=== PATIENT | female | born 1975 | race Caucasian/White ===

== ENCOUNTER 2017-05-22 13:08 | Emergency (ER) | payer OTHER, MEDICAID, SELFPAY ==
[2017-05-22 13:09] VITALS: BP 134/88; PULSE 79; RESP 16; TEMP 36.6; O2SAT 98; BMI 32.5
--- NOTE | 2017-05-22 13:38 | ED.VISSUMM ---
- ER Visit Summary Date of Service: 05/22/17 Chief Complaint: [Pain and swelling to right hip] History of Present Illness: The patient is a 42 F [presents to the emergency department with pain and swelling to her right hip that she noticed yesterday. Patient today noticed increased discomfort with some bruising and she comes to the ER for evaluation. Patient denies any known trauma to the area. He denies any chest pain or shortness of breath. She denies recent travel or surgery. Patient is not on any blood thinners. She denies any blood in her stool or black tarry stools. Patient has not been ill recently.] Physical Examination: [HEENT-PERRLA, EOMI. Cranial nerves II through XII grossly intact. TMs clear. Mucous membranes moist. No adenopathy. Cardiovascular-regular rate and rhythm without murmur or ectopy Lungs-clear to auscultation, chest wall stable without crepitus or subcu emphysema Abdomen-normoactive bowel sounds, soft, nontender, no rebound or rigidity, no peritoneal signs. Extremities-intact ?4, normal range of motion, normal pulses. right hip-some ecchymosis and bruising with hematoma noted over the lateral aspect of the right hip. Area is tender to palpation. There is no evidence of cellulitis. Neurovascular intact distally. Test Results: [None indicated] Emergency Department Course and Treatment: [None] Treatment Plan: [Patient will be given a prescription for a few Percocet for severe pain.] Patient is advised that she has a hematoma over the right hip and is to use ice to the area. Disposition: [Discharged home in stable condition] Impression: [Right hip hematoma] This note was generated with [employer] dictation software. It may contain incorrect words, spelling, and punctuation that were not noted in review of the chart prior to signing ED Disposition - Plan for ED Patient: Chief Complaint: Lower Extremity Injury Referrals: Molly Harper MD [Primary Care Provider] -
--- NOTE | 2017-05-22 13:40 | ED.DEP ---
ED Disposition - Plan for ED Patient: Chief Complaint: Lower Extremity Injury Instructions: ED Contusion Hip, ED Hematoma Prescriptions: Oxycodone HCl/Acetaminophen [Percocet 5/325] 1 tab PO Q6H PRN PRN 3 Days #12 tab PRN Reason: Pain Referrals: Molly Harper MD [Primary Care Provider] - 3-5 Days
== END 2017-05-22 14:03 | disposition home or self-care (01) ==
PROVIDERS: Emergency Provider Emergency Medicine; Family Provider Internal Medicine; PCP Internal Medicine
DX: S70.01XA Contusion of right hip, initial encounter (principal); X58.XXXA Exposure to other specified factors, initial encounter; Y93.9 Activity, unspecified; Y92.9 Unspecified place or not applicable; E03.9 Hypothyroidism, unspecified; F90.9 Attention-deficit hyperactivity disorder, unspecified type; Z79.899 Other long term (current) drug therapy; Z72.0 Tobacco use
CPT/HCPCS: 99282

== ENCOUNTER 2017-09-19 00:15 | Emergency (ER) | payer SELFPAY ==
--- NOTE | 2017-09-19 00:15 | DT_ITS ---
This patient was seen during an EMR downtime September 17, 2017 - September 24, 2017. This patient may have a combination of paper and electronic documentation or all paper documentation. All documentation is viewable within the e-chart portion of [employer] for each patient visit.
== END 2017-09-20 01:15 | disposition home or self-care (01) ==
LOC: ED 09-20 15:48
PROVIDERS: Emergency Provider Emergency Medicine; Family Provider Internal Medicine; PCP Internal Medicine
DX: K04.7 Periapical abscess without sinus (principal); K08.89 Other specified disorders of teeth and supporting structures; E03.9 Hypothyroidism, unspecified; Z79.899 Other long term (current) drug therapy; F17.200 Nicotine dependence, unspecified, uncomplicated
CPT/HCPCS: 99283

== ENCOUNTER 2018-01-14 11:06 | Outpatient (REF) | payer SELFPAY | END 2018-01-14 15:00 | disposition home or self-care (01) | LOC: ED 11:06 | DX: Z04.41 Encounter for examination and observation following alleged adult rape (principal) ==

== ENCOUNTER 2019-08-20 10:46 | Emergency (ER) | payer MEDICAID, SELFPAY ==
[2019-08-20 10:47] VITALS: BP 155/99; PULSE 96; RESP 17; TEMP 36.4; O2SAT 96; BMI 37.3
--- NOTE | 2019-08-20 11:07 | ED.DCSUM_ITS ---
- ER Visit Summary Date of Service: 08/20/19 Chief Complaint: [Cat bite] History of Present Illness: The patient is a 44 F [presents to the emergency department with a cat bite that started this morning around 9:45 AM. 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 Patient is right-hand dominant. Patient unsure of her last tetanus. 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 Unclear if the cat is immunized.] Physical Examination: [HEENT-PERRLA, EOMI. Cranial nerves II through XII grossly intact. TMs clear. Mucous membranes moist. No adenopathy. Cardiovascular-regular rate and rhythm without murmur or ectopy Lungs-clear to auscultation, chest wall stable without crepitus or subcu emphysema Abdomen-normoactive bowel sounds, soft, nontender, no rebound or rigidity, no peritoneal signs. Extremities-intact ?4, normal range of motion, normal pulses. Left forearm- patient has superficial abrasions and small puncture wounds noted to the dorsum and volar aspect of the forearm. No bite wounds noted to the hand. She is neurovascularly intact. No foreign bodies palpated within the wounds.] Test Results: [None indicated] Emergency Department Course and Treatment: [Patient had the wounds cleansed and dressed. Patient was started on Augmentin 875 mg p.o. Patient was given Adacel tetanus booster] Treatment Plan: [We will treat patient with Augmentin. Advised to follow-up with primary care physician in 3 to 5 days for wound check. Patient advised to return if worsening pain, increased redness, swelling, purulent drainage, or condition should worsen anyway.] Disposition: [Discharged home in stable condition] Impression: [Cat bite left forearm] This note was generated with [employer] dictation software. It may contain incorrect words, spelling, and punctuation that were not noted in review of the chart prior to signing ED Disposition - Plan for ED Patient: Referrals: Molly Harper MD [Primary Care Provider] -
--- NOTE | 2019-08-20 11:09 | ED.DEP ---
ED Disposition - Plan for ED Patient: Instructions: ED Bite Cat Prescriptions: Amox/Clavulanate Tablet [Augmentin Tablet] 875 mg PO Q12H #20 tab Prescription Printed Referrals: Molly Harper MD [Primary Care Provider] - 3-5 Days
[2019-08-20] MEDS: Amox/Clavulanate 875 MG Tablet PO (11:27)
[2019-08-20] MEDS: Diphth,Pertuss(Acell),Tet Vac 0.5 ML Vial IM (11:28)
--- NOTE | 2019-08-20 11:46 | ED.DEP ---
ED Disposition - Plan for ED Patient: Instructions: ED Bite Cat Prescriptions: Amox/Clavulanate Tablet [Augmentin Tablet] 875 mg PO Q12H #20 tab Prescription Printed Fluconazole [Diflucan] 100 mg PO DAILY #2 tab Prescription Printed Referrals: Molly Harper MD [Primary Care Provider] - 3-5 Days
[2019-08-20 11:50] VITALS: PULSE 88; RESP 17
== END 2019-08-20 11:51 | disposition home or self-care (01) ==
LOC: ED 11:26
PROVIDERS: Emergency Provider Emergency Medicine; PCP Internal Medicine
DX: S50.812A Abrasion of left forearm, initial encounter (principal); F17.200 Nicotine dependence, unspecified, uncomplicated; W55.01XA Bitten by cat, initial encounter
CPT/HCPCS: 90471; 90715; 99283

== ENCOUNTER 2020-01-05 10:56 | Emergency (ER) | payer MEDICAID, SELFPAY ==
[2020-01-05 10:57] VITALS: BP 136/91; PULSE 76; RESP 18; TEMP 36.3; O2SAT 98; BMI 36.6
--- NOTE | 2020-01-05 11:05 | ED.VIS.GEN ---
History of Present Illness Chief Complaint: Headache Informant: Patient Onset: Today Current Severity: Severe Maximum Severity: Severe Narrative: Patient present secondary to migraine headache. She states she was woken up at 5 AM this morning with headache. It is in the frontal and bitemporal area. She does describe photophobia but no nausea or vomiting. She states this is only the second migraine she is ever had. She did take Excedrin this morning without improvement. She denies recent head injury. No recent URI symptoms. - Past Medical History (1) Hypothyroid Status: Chronic Past Medical History - Allergies and Home Meds Allergies/Adverse Reactions: Allergies gabapentin Allergy (Verified 01/05/20 10:57) Hives hydrocodone bitartrate [From Vicodin] Allergy (Verified 01/05/20 10:57) Rash Primary Care Physician: Molly Harper MD [Primary Care Provider] - Prior records reviewed: Yes Lives: With Family Smoking Status: Current every day smoker Review of Systems General: Denies: Chills, Fever Eyes: Denies: Visual changes - bilaterally ENT: Denies: Bilateral ear pain Cardiovascular: Denies: Chest pain Respiratory: Denies: Dyspnea, Cough Gastrointestinal: Denies: Abdominal pain, Nausea, Vomiting Musculoskeletal: Denies: Swelling, Extremity Pain Neurological: Reports: Headache. Denies: Weakness, Parasthesia Hematologic: Denies: Easy bruising, Easy bleeding Allergy: Denies: Uticaria Physical Exam Vital Signs/Narrative: Vital Signs Temp Pulse Resp BP Pulse Ox 01/05/20 10:57 97.3 F L 76 18 136/91 H 98 Inital Vital Signs reviewed: Yes General: Well nourished, Well developed Head: Normocephalic ENT: Moist mucous membranes Neck: Supple Cardiovascular: Regular rate, Regular rhythm Respiratory: No distress, CTA bilaterally Abdomen: Soft, Nontender Extremities: Nontender Skin: Normal color Neurological: Alert, Oriented x3, Normal Strength, Normal Sensation Psychological: Normal affect Diagnostic/Tx/Re-eval - Medical Decision Making Patient was given IV fluids along with Toradol, Reglan, and Benadryl. On repeat evaluation she is improving. She is comfortable with discharge to home at this time with her family. ED Disposition - Plan for ED Patient: Disposition: Home or Assisted Living Diagnosis: Migraine Instructions: ED, Migraine (Classical) Referrals: Molly Harper MD [Primary Care Provider] - As Needed
[2020-01-05] MEDS: Ketorolac 30 MG/ML Syringe IV (11:20)
[2020-01-05] MEDS: Metoclopramide 10 MG/2 ML Vial IV (11:20)
[2020-01-05] MEDS: 0.9% Normal Saline 1,000 ML 999 ML IV (11:21)
[2020-01-05] MEDS: DiphenhydrAMINE 50 MG/ML Syringe 25 MG IV (11:21)
[2020-01-05 12:34] VITALS: RESP 18
== END 2020-01-05 12:35 | disposition home or self-care (01) ==
PROVIDERS: Emergency Provider Emergency Medicine; PCP Internal Medicine
DX: G43.909 Migraine, unspecified, not intractable, without status migrainosus (principal); F17.200 Nicotine dependence, unspecified, uncomplicated; E03.9 Hypothyroidism, unspecified
CPT/HCPCS: 96374; 96375; 99283; J7030; A4216

== ENCOUNTER 2020-01-06 07:16 | Emergency (ER) | payer MEDICAID, SELFPAY ==
[2020-01-05 10:57] VITALS: BMI 36.6
[2020-01-06 07:17] VITALS: BP 149/74; PULSE 89; RESP 17; TEMP 36.7; O2SAT 98; BMI 36.6
--- NOTE | 2020-01-06 07:30 | ED.DCSUM_ITS ---
History of Present Illness Chief Complaint: Headache Informant: Patient Narrative: Patient presents the emergency room for evaluation of right-sided headache. Patient states she was seen yesterday for headache and got 50% relief and went home and slept. When she woke she continued to have headache and vomiting and progressively worse throughout the night. She waited till her came home from sponsorship coordinator to come in. She denies any fevers. No arm leg or speech symptoms. She notes a throbbing sensation right side of her head and periorbital region. She notes photophobia. No fevers. No recent infections. She states that she has had a migraine before but only once. She tried Tylenol and Pepto-Bismol but no relief as she vomited after taking it. - Past Medical History (1) Hypothyroid Status: Chronic Past Medical History - Allergies and Home Meds Allergies/Adverse Reactions: Allergies gabapentin Allergy (Verified 01/06/20 07:16) Hives hydrocodone bitartrate [From Vicodin] Allergy (Verified 01/06/20 07:16) Rash Primary Care Physician: Molly Harper MD [Primary Care Provider] - Prior records reviewed: Yes Surgical History: noncontributory Lives: With Family Smoking Status: Current every day smoker Drugs: None Review of Systems General: Denies: Chills, Fever, Sweats Eyes: Reports: - - Light sensitivity. Denies: Visual changes - bilaterally, Diplopia ENT: Reports: - - Phonophobia. Denies: Rhinorrhea, Sore throat Cardiovascular: Denies: Chest pain, Palpitations Respiratory: Denies: Dyspnea, Cough, Dyspnea on exertion Gastrointestinal: Reports: Nausea, Vomiting. Denies: Abdominal pain, Diarrhea, Melena, Hematochezia Genitourinary: Denies: Dysuria, Hematuria, Frequency Musculoskeletal: Denies: Back pain, Extremity Pain Skin: Denies: Rash, Wounds Neurological: Reports: Headache. Denies: Weakness, Numbness Physical Exam Vital Signs/Narrative: Vital Signs Temp Pulse Resp BP Pulse Ox 01/06/20 07:17 98.0 F 89 17 149/74 H 98 Inital Vital Signs reviewed: Yes General: Well nourished, Well developed, No Acute Distress, - - Patient lying on the bed in a darkened room. She is holding an emesis bag. Head: Normocephalic, Atraumatic Eyes: Perrl, EOMI ENT: Moist mucous membranes, No rhinorrhea Neck: Supple, Nontender Cardiovascular: Regular rate, Regular rhythm, No murmurs Respiratory: No distress, CTA bilaterally, Chest nontender Abdomen: Soft, Nontender, Nondistended, Normal bowel sounds Back: Nontender, Normal Inspection Extremities: Nontender, No edema Skin: Normal color, No rash Neurological: Alert, Oriented x3, Cranial nerves II-XII grossly intact, Normal Strength, Normal Sensation Psychological: Normal affect, Normal Mood Diagnostic/Tx/Re-eval - Medical Decision Making Received Toradol Compazine Benadryl and IV fluids. While that was given a opportunity to work a head CT was obtained which was negative. Patient reported that her headache was no better. Imitrex was ordered and given. About an hour later the patient was noted to no longer be in the room and we could not find evidence that her IV had been removed. At this point as she is not in the vicinity of the emergency department I have to assume that she has eloped. ED Disposition - Plan for ED Patient: Disposition: Home or Assisted Living Diagnosis: Cephalgia Referrals: Molly Harper MD [Primary Care Provider] - As soon as possible
[2020-01-06] MEDS: 0.9% Normal Saline 1,000 ML 999 ML IV (08:22)
[2020-01-06] MEDS: Ketorolac 30 MG/ML Syringe IV (08:22)
[2020-01-06] MEDS: DiphenhydrAMINE 50 MG/ML Syringe IV (08:22)
[2020-01-06] MEDS: proCHLORPERazine 10 MG/2 ML Vial IV (08:23)
--- NOTE | 2020-01-06 08:28 | CT_ITS ---
STUDY: CT BRAIN WITHOUT CONTRAST REASON FOR EXAM: Female, 44 years old. HEADACHE WITH NAUSEA AND VOMITING RADIATION DOSAGE (If Supplied By Facility): CTDIvol = ( 44.99 ) mGy, DLP = ( 812.98 ) mGycm TECHNIQUE: Transaxial CT imaging of the brain was performed without administration of intravenous contrast material. Individualized dose optimization techniques were used for this CT. COMPARISON: No relevant priors. FINDINGS: Normal soft tissue structures. Normal calvarium. Normal size ventricles and extra-axial spaces for the patient''s age. Normal white matter tracts of the cerebral hemispheres. Normal basal ganglia and thalami. Normal brainstem. Normal cerebellum. There is no intracranial hemorrhage. There are no findings of an acute ischemic infarction. Normal visualized paranasal sinuses. CT/Brain/Head without Contrast IMPRESSION: Normal unenhanced CT scan of the brain. Electronically Signed: Ranulfo Larson, at 8:53 EDT , Service support ,
[2020-01-06 08:30] VITALS: RESP 16
[2020-01-06] MEDS: SUMAtriptan 6 MG/0.5 ML Vial SC (11:54)
--- NOTE | 2020-01-06 13:21 | ED.RN ---
PT NOT IN THE ROOM OR THE BATHROOM. UNABLE TO LOCATE THE PATIENT. THIS NURSE ATTEMPTED TO CONTACT THE PATIENT ABOUT HER IV. NO ANSWER AFTER 3 PHONE CALLS. CHERISE OSCAR CONTACTED TO GO TO THE HOME TO CHECK FOR THE IV
--- NOTE | 2020-01-06 14:12 | ED.RN ---
dispatch called and informed that pt's iv had been taken out.
== END 2020-01-06 14:12 | disposition home or self-care (01) ==
PROVIDERS: Emergency Provider Emergency Medicine; PCP Internal Medicine
DX: R51 Headache (principal); F17.200 Nicotine dependence, unspecified, uncomplicated
CPT/HCPCS: 70450; 96361; 96374; 96375; 99282; J7030; A4216; J3030

== ENCOUNTER 2020-01-08 07:40 | Emergency (ER) | payer MEDICAID, SELFPAY ==
[2020-01-08 07:40] VITALS: BP 137/85; PULSE 79; RESP 16; TEMP 36.6; O2SAT 98; BMI 36.6
[2020-01-08] MEDS: DiphenhydrAMINE 50 MG/ML Syringe 25 MG IV (09:38)
[2020-01-08] MEDS: 0.9% Normal Saline 1,000 ML 999 ML IV (09:38)
[2020-01-08] MEDS: Metoclopramide 10 MG/2 ML Vial IV (09:38)
--- NOTE | 2020-01-08 09:52 | ED.VISSUMM ---
- ER Visit Summary Date of Service: 01/08/20 Chief Complaint: Headache History of Present Illness: The patient is a 44 F who presents with headache that is been getting worse over the past 4 days. Patient was seen here 3 days ago and was given Reglan and Benadryl. Patient had improvement of her headache with that and was discharged home. Patient came back 2 days ago and had a CT scan which was negative. Patient was given Compazine, Benadryl, and Toradol. Patient had minimal relief with this. Patient had Imitrex ordered however the patient eloped prior to getting this. Patient states the pain is over the left side of her head. Patient admits to photophobia. Patient admits to nausea and vomiting. Patient states this is similar to her prior migraine headache. Physical Examination: Vital signs are stable. Patient is afebrile. Patient is in no acute distress. Oral mucosa is pink and moist. Neck is supple. Trachea is midline. There is no JVD. Tympanic membranes show effusions bilaterally. There is no erythema or bulging. Heart was regular rate and rhythm. Lungs are clear and equal bilaterally. Abdomen is soft and nontender. Cranial nerves II through XII are intact. There are no focal motor or sensory deficits noted. Emergency Department Course and Treatment: Patient was given IV fluids, Reglan, and Benadryl here. Patient had no relief with this. Patient was given a dose of Imitrex. Patient had minimal relief with this. Patient was given a dose of 2 mg of morphine. Patient states her headache was better. Patient was instructed to rest in a dark quiet room. Patient was instructed to follow-up with her primary care physician in 5 to 7 days. Patient understood and was agreeable with the plan. All questions were answered. Disposition: Discharge home Impression: Headache This note was generated with [employer] dictation software. It may contain incorrect words, spelling, and punctuation that were not noted in review of the chart prior to signing ED Disposition - Plan for ED Patient: Disposition: Home or Assisted Living Diagnosis: Headache Instructions: ED Headache Unspecified Referrals: Molly Harper MD [Primary Care Provider] - 3-5 Days
[2020-01-08] MEDS: SUMAtriptan 6 MG/0.5 ML Vial SC (10:25)
[2020-01-08 11:02] VITALS: BP 130/81; PULSE 74; RESP 16; O2SAT 99
[2020-01-08] MEDS: Morphine 2 MG/ML Syringe IV (11:35)
[2020-01-08 12:23] VITALS: BP 138/75; PULSE 87; RESP 16; O2SAT 99
== END 2020-01-08 12:30 | disposition home or self-care (01) ==
PROVIDERS: Emergency Provider Emergency Medicine; PCP Internal Medicine
DX: R51 Headache (principal); R11.2 Nausea with vomiting, unspecified; E03.9 Hypothyroidism, unspecified; F32.9 Major depressive disorder, single episode, unspecified
CPT/HCPCS: 96361; 96374; 96375; 99285; J7030; A4216; J3030

== ENCOUNTER 2020-11-16 17:34 | Emergency (ER) | payer MEDICAID, SELFPAY ==
[2020-11-16 17:35] VITALS: BP 133/104; PULSE 92; RESP 18; TEMP 35.8; O2SAT 96; BMI 32.9
--- NOTE | 2020-11-16 17:47 | EX.ED.DYSGE1 ---
HPI History of Present Illness Chief Complaint: Abd Pain Informant: patient Onset/Context/Timing Onset: Weeks Context: Gradual Onset Timing: Waxes and wanes Current Severity: Mild Maximum Severity: Moderate Narrative Narrative: Patient presents with periumbilical pain. Patient states she just got out of the snf. While there she was on the upper bunk where she had to climb up onto a commode and then a sink to get into her bunk. She states she noted a pulling sensation in her abdomen when she did this. Over the next several weeks it continued. She describes a pulling sensation from her esophagus down to her pubis. She states when she lies flat she will note a slight bulge at times. No vomiting or diarrhea. She is having normal bowel movements. [facility] Medical History Hypothyroid Home Medications levothyroxine 125 mcg PO DAILY 03/17/13 [History Last Taken 03/21/16] sertraline 100 mg PO DAILY 01/05/20 [History Last Taken Unknown] naproxen [Naprosyn] 500 mg PO BID PRN #20 tab 11/16/20 [Rx Last Taken Unknown] Allergy/AdvReac Type Severity Reaction Status Date / Time gabapentin Allergy Hives Verified 11/16/20 17:38 hydrocodone bitartrate Allergy Rash Verified 11/16/20 17:38 [From Vicodin] Surgical History History of Social History Smoking Status: Current every day smoker ROS ROS ED Constitutional Constitutional ED: Denies chills or fever(s) Eyes Eyes: Denies change in vision ENT ENT ED: Denies sore throat Cardiovascular Cardiovascular: Denies chest pain Respiratory/Chest Respiratory/Chest: Denies cough or dyspnea Gastrointestinal Gastrointestinal: Reports abdominal pain; Denies diarrhea, nausea or vomiting Genitourinary Genitourinary ED: Denies dysuria Musculoskeletal Musculoskeletal: Denies back pain Integumentary Denies rash Neurologic Neurologic: Denies headache(s) or weakness Psychiatric Psychiatric: Denies anxiety or depression Allergic/Immunologic Allergic/Immunologic ED: Denies urticaria EXAM Physical Exam Const Vital Signs: 11/16/20 17:35 Temperature 96.5 F L Temperature Source Temporal Pulse Rate 92 Respiratory Rate 18 Blood Pressure 133/104 H Blood Pressure Mean 113 Pulse Ox 96 Oxygen Delivery Method Room Air Positive well nourished and well developed General Appearance ED: well developed HEENT Reports normocephalic and head/scalp atraumatic Eyes PERRL and EOMs intact bilaterally Neck supple Chest Wall inspection of chest normal and palpation of chest normal Resp normal respiratory effort and clear to auscultation bilaterally Cardio regular rate and regular rhythm GI normal to inspection, nondistended, normoactive bowel sounds GI Narrative: No palpable hernias at this time. When patient strains I do feel a slight defect in the abdominal wall consistent with periumbilical hernia. Palpation: soft and tender periumbilical Extremity normal to inspection Neuro oriented x3 and no sensory deficits noted Sensorium / Orientation: alert Motor Exam: strength 5/5 throughout Psych mental status grossly normal Skin no rashes or lesions noted [facility] Treatment and Re-Evaluation Comments:: Patient be treated with anti-inflammatories and referred to surgery for follow-up. She asked to follow-up Dr. Gonzalez. At this time there is no evidence of incarceration. She was given instructions on what to watch for and return for worsened symptoms. Discharge Plan Triage Chief Complaint: Abd Pain ED Provider: Cathleen Robbins Dx/Rx/DC Orders Clinical Impression: Periumbilical hernia Instructions: ED Hernia (Adult) Prescriptions: New naproxen [Naprosyn] 500 mg tablet 500 mg PO BID PRN (Reason: pain) Qty: 20 RF: 0 No Action levothyroxine 150 MCG tablet 125 mcg PO DAILY RF: 0 sertraline 100 MG tablet 100 mg PO DAILY RF: 0 Primary Care Provider: Molly Harper Referrals: Molly Harper MD [Primary Care Provider] - Ernesto Gonzalez MD [STAFF PHYSICIAN] - As soon as possible Disposition Disposition: Home, Self Care
[2020-11-16] MEDS: Naproxen 500 MG Tablet PO (18:05)
== END 2020-11-16 18:07 | disposition home or self-care (01) ==
PROVIDERS: Emergency Provider Emergency Medicine; PCP Internal Medicine
DX: K42.9 Umbilical hernia without obstruction or gangrene (principal); F17.200 Nicotine dependence, unspecified, uncomplicated
CPT/HCPCS: 99283

== ENCOUNTER 2021-04-17 16:25 | Emergency (ER) | payer MEDICAID, SELFPAY ==
[2021-04-17 16:25] VITALS: BP 169/108; PULSE 130; RESP 20; TEMP 37.2; O2SAT 98; BMI 31.6
[2021-04-17 20:23] VITALS: BP 155/88; BP 185/55; PULSE 89; RESP 16; TEMP 37.1; O2SAT 96; O2SAT 97
[2021-04-17 21:23] VITALS: BP 142/64; PULSE 88; RESP 16; TEMP 37.2; O2SAT 97
--- NOTE | 2021-04-17 21:42 | EDS_ITS ---
HPI History of Present Illness Chief Complaint: Lower Extremity Injury Informant: patient Narrative Narrative: Patient complains of irritation from her alcohol monitoring band on her right ankle. This was placed between the April of August last year. It was then replaced in mid January as part of her court requirement. She states that for the last few days or week it is really been irritating the skin. She states she is going to cut it off. She just once something to treat the inflammation. She has no fevers or chills. No diabetes. No swelling of her legs. No allergies to antibiotics. [facility] Medical History Anxiety Hypothyroid Home Medications levothyroxine 125 mcg PO DAILY 03/17/13 [History Last Taken 03/21/16] sertraline 100 mg PO DAILY 01/05/20 [History Last Taken Unknown] naproxen [Naprosyn] 500 mg PO BID PRN #20 tab 11/16/20 [Rx Last Taken Unknown] cephalexin 500 mg PO Q6 #40 cap 04/17/21 [Rx Last Taken Unknown] fluconazole [Diflucan] 150 mg PO QWEEK #2 tab 04/17/21 [Rx Last Taken Unknown] Allergy/AdvReac Type Severity Reaction Status Date / Time gabapentin Allergy Hives Verified 04/17/21 16:30 hydrocodone bitartrate Allergy Rash Verified 04/17/21 16:30 [From Vicodin] Surgical History History of Social History Smoking Status: Current every day smoker tobacco type: cigarettes ROS ROS ED Constitutional Constitutional ED: Denies chills or fever(s) Cardiovascular Cardiovascular: Denies chest pain Respiratory/Chest Respiratory/Chest: Denies cough or dyspnea Gastrointestinal Gastrointestinal: Denies nausea or vomiting Musculoskeletal Musculoskeletal: Reports other Details: See history of present illness Integumentary Reports Abrasions and rash Neurologic Neurologic: Denies headache(s) Psychiatric Psychiatric: Reports anxiety Endocrine Endocrinology: Denies polydipsia or polyuria Hematologic/Lymphatic Hematologic/Lymphatic: Denies easy bleeding or easy bruising Allergic/Immunologic Allergic/Immunologic ED: Denies mouth swelling or urticaria EXAM Physical Exam Const Vital Signs: 04/17/21 16:25 04/17/21 20:23 Temperature 98.9 F 98.7 F Temperature Source Temporal Temporal Pulse Rate 130 H 89 Respiratory Rate 20 H 16 Blood Pressure 169/108 H 185/55 H Blood Pressure Mean 128 98 Pulse Ox 98 96 Oxygen Delivery Method Room Air Room Air Positive well nourished and well developed General Appearance ED: well developed and NAD HEENT normocephalic and atraumatic Chest Wall inspection of chest normal Resp normal respiratory effort Extremity Extremity Narrative: Patient has a monitor on her right ankle. Under both of the boxes that are part of this monitor, she has inflammation and erosion of the skin. There is some moisture around it especially on the medial aspect. There is some mild generalized redness that spreads a little bit out of the local area. There is no redness of the leg. No tenderness. No distended veins. No cord. She states she smelled a bad odor to it but I do not notice that. Neuro Sensorium / Orientation: alert MDM MDM MDM Narrative Medical decision making narrative: We called police about getting this ankle monitor off or switch to the other side. I do not have the tools to appropriately remove it. Patient states she is going to cut it off with scissors. She is done that before. She is going to take that responsibility. She just wants the problem of her leg treated. I explained that we can treat this with some antibiotics. I will write Diflucan because she has a history of yeast infections after antibiotics. Patient is welcome to wait for official removal of the monitor if she is so chooses. Discharge Plan Triage Chief Complaint: Lower Extremity Injury ED Provider: Joel Young Dx/Rx/DC Orders Clinical Impression: Cellulitis of right ankle Instructions: ED Cellulitis Prescriptions: New cephalexin [cephalexin] 500 MG capsule 500 mg PO Q6 Qty: 40 RF: 0 fluconazole [Diflucan] 150 mg tablet 150 mg PO QWEEK Qty: 2 RF: 0 No Action levothyroxine 150 MCG tablet 125 mcg PO DAILY RF: 0 sertraline 100 MG tablet 100 mg PO DAILY RF: 0 naproxen [Naprosyn] 500 mg tablet 500 mg PO BID PRN (Reason: pain) Qty: 20 RF: 0 Primary Care Provider: Molly Harper Referrals: Molly Harper MD [Primary Care Provider] - 3-5 Days if not improving Disposition Disposition: Home, Self Care
== END 2021-04-17 22:04 | disposition home or self-care (01) ==
PROVIDERS: Emergency Provider Emergency Medicine; PCP Internal Medicine; Visit Provider Emergency Medicine
DX: L03.115 Cellulitis of right lower limb (principal); F17.210 Nicotine dependence, cigarettes, uncomplicated
CPT/HCPCS: 99282

== ENCOUNTER 2021-12-12 16:03 | Emergency (ER) | payer MEDICAID, SELFPAY ==
[2021-12-12 16:04] VITALS: BP 159/106; PULSE 78; RESP 14; TEMP 36.4; O2SAT 98; BMI 30.7
--- NOTE | 2021-12-12 16:20 | ED.RN ---
pt. refused to get off the cot for squad, she finally got in a wheelchair. during traige she would not speak to this nurse only wrote down information. as soon as she was put in the cueto. pt. jumped up and walked to get coffee. and was yelling about waiting.
--- NOTE | 2021-12-12 16:42 | ED.RN ---
pt. upset and walks out with out being seen.
== END 2021-12-12 16:40 | disposition left against medical advice (07) ==
LOC: ED 16:46
PROVIDERS: PCP Internal Medicine
DX: Z53.21 Procedure and treatment not carried out due to patient leaving prior to being seen by health care provider (principal)